=== PATIENT | female | born 1960 | race Caucasian/White ===

== ENCOUNTER 2020-02-06 09:27 | Outpatient (CLI) | payer OTHER, SELFPAY ==
--- NOTE | 2020-02-06 09:37 | US_ITS ---
WS: [id number] INDICATION: Screening ultrasound. Bilateral breast implants. TECHNIQUE: Bilateral screening ultrasound. FINDINGS: Four-quadrant ultrasound both breasts bilaterally. Bilateral breast implants. Tiny incident al cyst right breast measuring 6 mm at 1:00. Additional tiny cyst left breast 10:00 measuring 4 mm. No evidence of pathologic mass or lesion in either breast. No lesions to target for biopsy. US/US breast BI limited* [id number] IMPRESSION: Unremarkable Bilateral breast ultrasound
== END 2020-02-06 09:28 | disposition home or self-care (01) ==
PROVIDERS: Family Provider Nurse Practitioner; Visit Provider Nurse Practitioner
DX: Z12.31 Encounter for screening mammogram for malignant neoplasm of breast (principal)
CPT/HCPCS: 76642

== ENCOUNTER 2023-06-29 11:14 | Outpatient (CLI) | payer OTHER, SELFPAY ==
--- NOTE | 2023-06-29 11:32 | US_ITS ---
WS: [id number] ULTRASOUND BREAST BILATERAL TECHNIQUE: Ultrasound bilateral breast focused area of concern. CLINICAL INFORMATION: REFUSES MAMMO DUE TO AGE OF BREAST IMPLANTS COMPARISON: 02/06/2020 FINDINGS: Bilateral breast ultrasound. Bilateral breast implants. A few incidental subcentimeter cyst s bilaterally are visualized. A few normal-appearing lymph nodes in both axilla. No suspicious lesion s to target for biopsy. No other suspicious findings. IMPRESSION: BI-RADS 2 benign
== END 2023-06-29 11:15 | disposition home or self-care (01) ==
LOC: RAD 11:14
PROVIDERS: Family Provider Nurse Practitioner; Visit Provider Nurse Practitioner
DX: Z98.82 Breast implant status (principal)
CPT/HCPCS: 76642

== ENCOUNTER 2023-09-11 10:51 | Outpatient (CLI) | payer OTHER, SELFPAY ==
--- NOTE | 2023-09-11 10:56 | US_ITS ---
WS: [id number] THYROID ULTRASOUND HISTORY: THYROID NODULES COMPARISON: None available. Right lobe: 1.5 cm x 1.5 cm x 5.0 cm (w x ap x l). Volume: 5.4 cm3. Normal size thyroid lobe. There is mild heterogeneity throughout the gland. There is a hypoechoic nod ule in the mid thyroid measuring 5 x 5 x 6 mm. Left lobe: 1.6 cm x 1.7 cm x 4.7 cm (w x ap x l). Volume: 6.0 cm3. Hypoechoic nodule in the mid gland is ovoid measuring 9 x 5 x 11 mm. There are a few tiny echogenic f oci within this nodule. This nodule does appear taller than wide. Isthmus: 0.2 cm. IMPRESSION: 1. TI-RADS 5; recommend ultrasound-guided biopsy of the mid LEFT thyroid nodule. Although this nodul e is not very large there are several features that are suspicious for neoplasm. Ultrasound FNA recom mended. 2. Yearly ultrasound evaluation RIGHT thyroid nodules.
== END 2023-09-11 10:52 | disposition home or self-care (01) ==
LOC: RAD 10:52
PROVIDERS: Family Provider Nurse Practitioner; Visit Provider Nurse Practitioner
DX: E04.1 Nontoxic single thyroid nodule (principal)
CPT/HCPCS: 76536

== ENCOUNTER 2024-07-11 10:55 | Outpatient (CLI) | payer OTHER, SELFPAY ==
--- NOTE | 2024-07-11 11:03 | US_ITS ---
WS: [id number] ULTRASOUND BREAST BILATERAL TECHNIQUE: Ultrasound bilateral breasts. Requested bilateral breast ultrasound due to implants. CLINICAL INFORMATION: BREAST IMPLANTS COMPARISON: 06/29/2023 FINDINGS: Bilateral breast ultrasound. Bilateral breast implants. Again seen are a few incidental sub centimeter cysts similar to the prior examination. Incidental intramammary lymph node upper inner lamont drant LEFT breast. No suspicious cystic or solid lesions to target for biopsy. No other suspicious fi ndings today. US/US breast BI limited* [id number] IMPRESSION: BI-RADS 2 benign Recommend return to annual screening breast ultrasound
== END 2024-07-11 10:56 | disposition home or self-care (01) ==
LOC: RAD 10:56
PROVIDERS: Visit Provider Nurse Practitioner
DX: Z98.82 Breast implant status (principal); N60.19 Diffuse cystic mastopathy of unspecified breast
CPT/HCPCS: 76642

== ENCOUNTER → 2025-05-07 09:53 | Outpatient (BNVA) | payer OTHER, SELFPAY | PROVIDERS: PCP Nurse Practitioner; Visit Provider Podiatrist Foot & Ankle Surgery | DX: M79.672 Pain in left foot (principal); M79.671 Pain in right foot; M72.2 Plantar fascial fibromatosis; M21.6X1 Other acquired deformities of right foot; M21.6X2 Other acquired deformities of left foot | CPT/HCPCS: 73630; 99203 ==